=== PATIENT | male | born 1970 | race Caucasian/White ===

== ENCOUNTER 2021-04-24 09:36 | Emergency (ER) | payer OTHER, SELFPAY ==
[2021-04-24 12:01] VITALS: BP 146/89; PULSE 59; RESP 22; TEMP 37.3; O2SAT 99; BMI 31.3
--- NOTE | 2021-04-24 12:01 | XR_ITS ---
PROCEDURE INFORMATION: Exam: XR Chest Exam date and time: 04/24/2021 12:01 PM Age: 50 years old Clinical indication: Patient HX: Cough and congestion. TECHNIQUE: Imaging protocol: XR of the chest. Views: 2 views. COMPARISON: No relevant prior studies available. FINDINGS: Lungs: Faint reticular opacities in the lungs bilaterally. Pleural spaces: Unremarkable. No pleural effusion. No pneumothorax. Heart/Mediastinum: Unremarkable. No cardiomegaly. Bones/joints: Unremarkable. IMPRESSION: Faint reticular opacities in the lungs bilaterally may reflect pneumonia.
--- NOTE | 2021-04-24 12:24 | HMH.EDUTC ---
[facility] Disposition Clinical Impression: Pneumonia Qualifiers: Pneumonia type: due to unspecified organism Laterality: bilateral Lung location: lower lobe of lung Qualified Code(s): J18.9 - Pneumonia, unspecified organism Disposition: Home, Self-Care Condition on Discharge: Good Instructions: Pneumonia-Adult, DI for COVID-19 (Suspected or Confirmed ), Preventing the Spread of Coronavirus Discharge Instructions Additional Instructions: Drink plenty of fluids. Make sure you are resting plenty. Your body needs all its energy to fight off pneumonia for the next several days. Take tylenol or ibuprofen for pain or fever. Take the medications as directed. Follow up with your regular doctor. GO TO THE ER FOR ANY WORSENING SYMPTOMS Throw your tooth brush away and get a new one. Quarantine until you know the results of your covid-19 test. If it is positive, the health department should call you and give you further instructions about your length of Quarantine and other things. Notify your school or workplace of your results and follow their instructions regarding return to work/school. Don't start the oral steroids (medrol dose pack) until tomorrow, since you had the shot here today. Start the antibiotics (levaquin) today. The cough medication (promethazine dm) will make you drowsy, so don't drive or operate heavy machinery after taking it. If this is not covid-19, please follow up with your primary care physician in a few days to make sure you are getting better. Usually you should have another chest x-ray in a couple of weeks to make sure the pneumonia is completely gone. If this is covid-19, none of that applies, but make sure you follow up for any worsening of your breathing regardless. Prescriptions: Albuterol Sulfate [Albuterol Sulfate Hfa] 2 puffs IH Q6HP PRN 30 Days #1 each PRN Reason: Shortness Of Breath Transmission Status: Received by [facility] Promethazine/Dextromethorphan [Promethazine-Dm Syrup] 5 ml PO Q6HP PRN #240 ml PRN Reason: Cough Transmission Status: Received by [facility] levoFLOXacin [Levaquin 500mg tab] 500 mg PO DAILY 7 Days #7 tab Transmission Status: Received by [facility] methylPREDNISolone [Medrol] 4 mg PO DIRECTED 6 Days #21 packet Transmission Status: Received by [facility] Referrals: Govind Euceda MD [Primary Care Provider] - Forms: Work/School Release Time of Disposition: 12:39 Medical Decision Making - Medical Records Medical records reviewed: No: I reviewed the patient's medical records. - Kalyan Inquiry Pt receiving controlled substance: No Vital Signs: 04/24/21 12:01 04/24/21 12:53 Temperature 99.2 F 99.2 F Temperature Source Oral Pulse Rate 59 L Pulse Rate [Left] 59 L Respiratory Rate 22 22 Blood Pressure 146/89 H Blood Pressure [Right Arm] 146/89 H Blood Pressure Mean [Right Arm] 108 02 Sat by Pulse Oximetry 99 - Lab Data Lab results reviewed: Yes: I reviewed the patient's lab results. Lab Results 04/24/21 12:35: Chlamy pneumoniae PCR Not detected, Adenovirus (PCR) Not detected, B. pertussis DNA (PCR) Not detected, Coronavirus OC43 (PCR) Not detected, Coronavirus HKU1 (PCR) Not detected, Coronavirus 229E (PCR) Not detected, SARS-CoV-2 (PCR) Detected A, Coronavirus NL63 (PCR) Not detected, Human Metapneumovir PCR Not detected, Influenza A (H1) PCR Not detected, Influ A (H1N1/09) PCR Not detected, Influenza A (H3) PCR Not detected, Influenza Type A (PCR) Not detected, Influenza Type B (PCR) Not detected, M. pneumoniae (PCR) Not detected, Parainfluenza 1 (PCR) Not detected, Parainfluenza 2 (PCR) Not detected, Parainfluenza 3 (PCR) Not detected, Parainfluenza 4 (PCR) Not detected, RSV (PCR) Not detected, Entero/Rhino (PCR) Not detected Orders (Tests/Meds): ED MEDICATIONS Discontinued Medications Generic Name Dose Route Start Last Admin Trade Name Freq PRN Reason Stop Dose Admi
[2021-04-24 12:46] LABS: Adenovirus,PCR Not Detected (NotDetected); Bordetella Pertussis Not Detected (NotDetected); Chlamydophila Pneumoniae, PCR Not Detected (NotDetected); Coronavirus 229E Not Detected (NotDetected); Coronavirus NL63 Not Detected (NotDetected); Coronavirus OC43 Not Detected (NotDetected); Coronovirus HKU1,PCR Not Detected (NotDetected); Human Metapneumovirus Not Detected (NotDetected); Influenza A, PCR Not Detected (NotDetected); Influenza AH1, 2009 Not Detected (NotDetected); Influenza AH1, PCR Not Detected (NotDetected); Influenza AH3,PCR Not Detected (NotDetected); Influenza B, PCR Not Detected (NotDetected); Mycoplasma Pneumoniae, PCR Not Detected (NotDetected); Parainfluenza 1, PCR Not Detected (NotDetected); Parainfluenza 2, PCR Not Detected (NotDetected); Parainfluenza 3, PCR Not Detected (NotDetected); Parainfluenza 4, PCR Not Detected (NotDetected); Respiratory Syncytial Virus Not Detected (NotDetected); Rhinovirus/Enterovirus Not Detected (NotDetected)
[2021-04-24 12:53] VITALS: BP 146/89; PULSE 59; RESP 22; TEMP 37.3
[2021-04-24 14:02] LABS: Coronavirus 19, PCR Detected (NotDetected)
== END 2021-04-24 12:54 | disposition home or self-care (01) ==
PROVIDERS: Emergency Provider Nurse Practitioner Family; PCP Internal Medicine Adolescent Medicine
DX: J18.9 Pneumonia, unspecified organism (principal); U07.1 COVID-19
CPT/HCPCS: 71046; 87581; 87632; 87798; 96372; 99202; C9803; G0463; U0003; U0005

== ENCOUNTER → 2022-08-23 06:50 | Outpatient (CLI) | payer BC, SELFPAY ==
--- NOTE | 2022-08-23 07:14 | CT_ITS ---
FINAL REPORT TECHNIQUE: Thin section axial CT images of the orbits were obtained. Coronal reformatted images were also obtained. This study was performed with techniques to keep radiation doses as low as reasonably achievable (ALARA). Individualized dose reduction techniques using automated exposure control or adjustment of mA and/or kV according to the patient''s size were employed. CLINICAL HISTORY: PAPILLEDEMA, right eye blurry vision, black spot. COMPARISON: none FINDINGS: No fracture. There are postoperative changes in the right maxilla. There is mucosal thickening in the floor of the left maxilla with chronic calcifications. The globes are intact. Optic nerves are normal. Extraocular muscles appear normal IMPRESSION: No acute findings. Reviewed, Interpreted and Dictated by Iraj Dallas MD Transcribed by Angela Sheldon Authenticated and [facility]
--- NOTE | 2022-08-23 07:14 | CT_ITS ---
FINAL REPORT TECHNIQUE: Axial images through the brain were performed after the administration of IV contrast. Coronal reconstructions were submitted. This study was performed with techniques to keep radiation doses as low as reasonably achievable (ALARA). Individualized dose reduction techniques using automated exposure control or adjustment of mA and/or kV according to the patient's size were employed. CLINICAL HISTORY: PAPILLEDEMA COMPARISON: none FINDINGS: There is no evidence of intracranial hemorrhage or mass. The ventricular size is within normal limits. There is no evidence of shift of the midline structures. No abnormal extra axial fluid collection is identified. No skull abnormality is seen on the bone window images. No abnormal contrast enhancement. IMPRESSION: No acute intracranial process. Reviewed, Interpreted and Dictated by Praveen Donaldson III, MD Transcribed by Angela Sheldon Authenticated and [facility]
== END ==
LOC: RAD 06:55
PROVIDERS: PCP Internal Medicine Adolescent Medicine; Visit Provider Internal Medicine Adolescent Medicine
DX: H47.10 Unspecified papilledema (principal)
CPT/HCPCS: 70460; 70480; Q9966

== ENCOUNTER → 2022-08-31 13:14 | Outpatient (CLI) | payer BC, SELFPAY ==
--- NOTE | 2022-08-31 | XR_ITS ---
FINAL REPORT CLINICAL HISTORY: METAL IN EYE R/O METAL FOR MRI COMPARISON: None FINDINGS: ORBITS Look up and look down views were obtained. No fracture is identified. The sinuses are clear. No radiopaque foreign body is identified. There are postoperative changes in the anterior face. IMPRESSION: No evidence of radiopaque foreign body. Reviewed, Interpreted and Dictated by Praveen Donaldson III, MD Transcribed by Angela Sheldon Authenticated and . [facility]
--- NOTE | 2022-08-31 13:49 | MR_ITS ---
FINAL REPORT CLINICAL HISTORY: UNSPECIFIED PAPILLEDEMA RIGHT EYE HAZEY COMPARISON: none FINDINGS: Multiplanar MR imaging of the brain was performed without contrast. There is no evidence of intracranial hemorrhage or mass. The ventricular size is normal. There is no evidence of shift of the midline structures. No area of restricted diffusion is identified. The posterior fossa and brainstem have an unremarkable appearance. Normal major vessel vascular flow voids are seen. IMPRESSION: Unremarkable brain with no focal abnormality identified. Reviewed, Interpreted and Dictated by Praveen Donaldson III, MD Transcribed by Angela Sheldon Authenticated and . [facility]
== END ==
LOC: RAD 13:14
PROVIDERS: PCP Internal Medicine Adolescent Medicine; Visit Provider Internal Medicine Adolescent Medicine
DX: H47.10 Unspecified papilledema (principal); H05.50 Retained (old) foreign body following penetrating wound of unspecified orbit
CPT/HCPCS: 70200; 70551

== ENCOUNTER → 2022-09-11 14:45 | Outpatient (CLI) | payer BC, SELFPAY ==
--- NOTE | 2022-09-11 15:13 | MR_ITS ---
FINAL REPORT CLINICAL HISTORY: PAPILLEDEMA. BLURRED VISION OUT OF RIGHT EYE COMPARISON: August 31, 2022 FINDINGS: Globes: Intact Optic nerve sheaths: Normal Orbital masses: None Extraocular muscles: Symmetric Optic chiasm: Unremarkable Pituitary and pituitary stalk: Unremarkable. Visualized brain: Unremarkable. Other: Right frontal calvarial lesion measuring 9 mm with associated enhancement is nonspecific. IMPRESSION: Unremarkable appearance of the orbits. Pituitary unremarkable. Nonspecific right frontal calvarial lesion with enhancement favors a hemangioma. Recommend CT or MRI follow-up in 6 months. Reviewed, Interpreted and Dictated by Magdalena Bowen MD Transcribed by Bassem Arana Authenticated and [facility]
== END ==
LOC: RAD 14:46
PROVIDERS: PCP Internal Medicine Adolescent Medicine; Visit Provider Internal Medicine Adolescent Medicine
DX: H47.10 Unspecified papilledema (principal); H46.9 Unspecified optic neuritis; G44.52 New daily persistent headache (NDPH); M79.2 Neuralgia and neuritis, unspecified
CPT/HCPCS: 70543; A9576

== ENCOUNTER → 2022-10-02 14:12 | Outpatient (CLI) | payer BC, SELFPAY ==
--- NOTE | 2022-10-02 14:25 | CT_ITS ---
FINAL REPORT TECHNIQUE: Thin-section axial CT images were performed through the orbits. Coronal and sagittal reformatted images were submitted. This study was performed with techniques to keep radiation doses as low as reasonably achievable, (ALARA). Individualized dose reduction techniques using automated exposure control or adjustment of mA and/or kV according to the patient's size were employed CLINICAL HISTORY: RETINAL ISCHEMIA COMPARISON: 08/23/2022 FINDINGS: No fracture is identified. The orbital floors are intact. Globes are intact. Extraocular muscles are unremarkable. There are postoperative changes to the anterior right maxilla. There is an 8 mm lytic lesion in the right frontal skull which is unchanged from prior exam, favor hemangioma. IMPRESSION: Stable 8 mm lytic lesion in the right frontal skull, favor hemangioma. Reviewed, Interpreted and Dictated by Praveen Donaldson III, MD Transcribed by Hiral Felipe Authenticated and [facility]
== END ==
PROVIDERS: PCP Internal Medicine Adolescent Medicine; Visit Provider Nurse Practitioner Family
DX: H35.82 Retinal ischemia (principal)
CPT/HCPCS: 70480

== ENCOUNTER → 2022-10-04 08:01 | Outpatient (CLI) | payer BC, SELFPAY ==
--- NOTE | 2022-10-04 08:05 | FL_ITS ---
FINAL REPORT CLINICAL HISTORY: r/o MS, acute blindness in right eye, ft 0:10, opening pressure 19 FINDINGS: LUMBAR PUNCTURE AND FLUOROSCOPY HISTORY: Headaches ATTENDING PHYSICIAN: Dr. Donaldson PHYSICIAN ARTISAN PLASTERER: Yosvany Kern PA-C PROCEDURE: After informed consent was obtained and timeout procedure performed, the patient was placed in the prone position in the fluoroscopic suite. The L4-L5 level of the lumbar spine was localized under fluoroscopic guidance and marked on the skin appropriately. The patient was then prepped and draped in the usual sterile fashion and the skin was anesthetized with 1% Lidocaine. A lumbar puncture was then performed under direct fluoroscopic guidance at the L3/4 level using a 20-gauge 3 1/2'' needle. The patient was subsequently rolled into the left lateral decubitus position and opening pressure was measured at 19 cm of water. Approximately 12 ml of clear cerebrospinal fluid was removed and sent to the laboratory for studies. The patient tolerated the procedure well and there were no immediate complications. IMPRESSION: Technically successful lumbar puncture as above. Films reviewed , interpreted and dictated by Dr. Donaldson Transcribed by Yosvany Kern PA-C. Reviewed, Interpreted and Dictated by Praveen Donaldson III, MD Transcribed by AGAPITO Phillips Authenticated and [facility]
[2022-10-04 14:49] LABS: Appearance,CSF Clear (Clear); Red Blood Cell,CSF 0 cells/uL (0); Volume,CSF 13 mL; White Blood Cell,CSF 3 cells/uL (0-5)
[2022-10-04 14:51] LABS: Mononuclear WBCs,CSF 3 %; Polynuclear WBCs,CSF 0 %
== END | disposition home or self-care (01) ==
PROVIDERS: PCP Internal Medicine Adolescent Medicine; Visit Provider Nurse Practitioner Family
DX: H47.10 Unspecified papilledema (principal); H46.9 Unspecified optic neuritis; H35.82 Retinal ischemia
CPT/HCPCS: 62270; 62328; 83916; 89051

== ENCOUNTER 2022-10-05 12:45 | Emergency (ER) | payer BC, SELFPAY ==
[2022-10-05 12:59] VITALS: BP 128/86; PULSE 50; RESP 20; TEMP 36.6; O2SAT 97; BMI 31.0
[2022-10-05 13:00] VITALS: BP 118/80; PULSE 51; O2SAT 98
--- NOTE | 2022-10-05 13:09 | HMH.EDGENADL ---
Discharge Plan Disposition Patient Disposition: Home, Self-Care Prescriptions Prescriptions: No Action No Known Home Medications Referrals Follow up/Referrals: Govind Euceda MD [Primary Care Provider] - See instructions Activity Restrictions/Add. Instructions Additional Instructions/Restrictions: Return in 24 to 48 hours for an epidural blood patch if your symptoms have not resolved. Clinical Impressions Clinical Impression: Post-dural puncture headache Discharge ED Provider: Amy Loo General Adult HPI General Chief complaint: Headache Stated complaint: headache, spinal tap yesterday Time Seen by Provider: 10/05/22 12:54 History of Present Illness HPI narrative: Patient is a 51-year-old male presenting with a headache following a lumbar puncture yesterday. States that he lost vision in his right eye in August of this year and has been being worked up by Dr. Wharton and had a lumbar puncture that was scheduled outpatient performed by radiology done yesterday. He had no headache no meningismus no fevers no other symptoms prior to this lumbar puncture but following the lumbar puncture he has had a positional headache that has been significantly worsened with position specifically sitting up improves with lying flat. Related Data Home Medications Medication Instructions Recorded Confirmed No Known Home Medications 10/05/22 10/05/22 Allergies Allergy/AdvReac Type Severity Reaction Status Date / Time Morphine Allergy Mild I-RASH Uncoded 03/27/17 14:16 PCN (penicillin) Allergy Mild I-RASH Uncoded 03/27/17 14:16 PFSH [facility] Disclaimer: The information contained in this section may have been updated after the patient was seen, as this information can be updated by other users. Social History Smoking Status: Never smoker alcohol intake: never current occupational status: other Travel in the last 8 weeks: None ROS Obtained: Yes All systems reviewed & no additional complaints except as documented Physical Exam General General appearance: alert Respiratory Respiratory exam: Present normal lung sounds bilaterally Cardiovascular Cardiovascular exam: Present regular rate Neurological Exam Neurological exam: Present alert, oriented X3 and CN II-XII intact Medical Decision Making Kalyan Inquiry Pt receiving controlled substance: No Vital Signs: 10/05/22 12:59 10/05/22 13:00 10/05/22 13:30 Temperature 97.8 F Temperature Source Oral Pulse Rate 51 L 50 L Pulse Rate [Left Radial] 50 L Respiratory Rate 20 Blood Pressure 118/80 120/80 Blood Pressure [Right Arm] 128/86 Blood Pressure Mean 92 90 Blood Pressure Mean [Right Arm] 100 02 Sat by Pulse Oximetry 97 98 94 L Oxygen Delivery Method Room Air Room Air Room Air 10/05/22 14:03 Temperature Temperature Source Pulse Rate 47 L Pulse Rate [Left Radial] Respiratory Rate Blood Pressure 136/82 Blood Pressure [Right Arm] Blood Pressure Mean 100 Blood Pressure Mean [Right Arm] 02 Sat by Pulse Oximetry 96 Oxygen Delivery Method Lab Data Lab results reviewed: Yes I reviewed the patient's lab results. Lab Results 10/05/22 14:07: WBC 4.6 L, RBC 5.57, Hgb 16.2, Hct 50.5, MCV 90.8, MCH 29.0, MCHC 32.0, RDW 13.4, Plt Count 219, MPV 7.6, Neut % (Auto) 60.9, Lymph % (Auto) 30.1, [place] % (Auto) 6.3, Eos % (Auto) 2.0, Baso % (Auto) 0.6, Neut # (Auto) 2.8, Lymph # (Auto) 1.4, [place] # (Auto) 0.3, Eos # (Auto) 0.1, Baso # (Auto) 0.0, Sodium 138, Potassium 4.1, Chloride 100, Carbon Dioxide 28, Anion Gap 14.1, BUN 19, Creatinine 1.00, Estimated Creat Clear 116, Estimated GFR 78, Est GFR ( Amer) 95, Glucose 99, Calcium 8.9, Total Bilirubin 0.4, AST 25, ALT 30, Alkaline Phosphatase 61, Total Protein 7.3, Albumin 4.2, Globulin 3.1, Albumin/Globulin Ratio 1.4 10/05/22 14:07 10/05/22 14:07 Orders (Tests/Meds): ED MEDICATIONS Discontinued Medications Generic Name Dose
[2022-10-05 13:30] VITALS: BP 120/80; PULSE 50; O2SAT 94
--- NOTE | 2022-10-05 13:51 | CT_ITS ---
FINAL REPORT TECHNIQUE: Thin section axial CT with IV contrast supplemented with multiplanar reconstruction under CT angiogram protocol. This study was performed with techniques to keep radiation doses as low as reasonably achievable (ALARA). Individualized dose reduction techniques using automated exposure control or adjustment of mA and/or kV according to the patient''s size were employed. NASCET criteria was utilized during interpretation. CLINICAL HISTORY: right eye vision loss (subacute, may) COMPARISON: None FINDINGS: Aortic arch: Arch shows no significant narrowing. Great vessel origins are widely patent. Right carotid: No significant stenosis is seen of the cervical common or internal carotid artery. Left carotid: No significant stenosis is seen of the cervical common or internal carotid artery. Vertebral: Left vertebral artery is dominant. No significant stenosis is present. IMPRESSION: No evidence of occlusion or significant stenosis. Reviewed, Interpreted and Dictated by Praveen Donaldson III, MD Transcribed by Angela Sheldon Authenticated and [facility]
--- NOTE | 2022-10-05 13:51 | CT_ITS ---
FINAL REPORT TECHNIQUE: Thin section axial CT with IV contrast supplemented with multiplanar reconstruction under CT angiogram protocol. 3-D reconstructions were performed. This study was performed with techniques to keep radiation doses as low as reasonably achievable (ALARA). Individualized dose reduction techniques using automated exposure control or adjustment of mA and/or kV according to the patient''s size were employed. CLINICAL HISTORY: .right eye vision loss (subacute, august) COMPARISON: None FINDINGS: The distal vertebral, basilar and distal internal carotid arteries have an unremarkable appearance. No aneurysm is seen. Major intracranial vessels are patent without significant stenosis. IMPRESSION: No evidence of occlusion or significant stenosis. Reviewed, Interpreted and Dictated by Praveen Donaldson III, MD Transcribed by Angela Sheldon Authenticated and [facility]
[2022-10-05 14:03] VITALS: BP 136/82; PULSE 47; O2SAT 96
[2022-10-05 14:12] LABS: Basophils % 0.6 % (0.1-2.0); Eosinophils # 0.1 K/mm3 (0.0-0.4); Hematocrit 50.5 % (42.0-52.0); Hemoglobin 16.2 g/dL (14.1-18.0); Lymphocytes # 1.4 K/mm3 (0.7-4.5); Lymphocytes % 30.1 % (10-50); Mean Corpuscular Volume 90.8 fl (80-94); Mean Platelet Volume 7.6 fl (7.4-10.4); Monocytes # 0.3 K/mm3 (0.1-1.0); Monocytes % 6.3 % (1.7-9.3); Neutrophils # 2.8 K/mm3 (1.8-7.8); Neutrophils % 60.9 % (37.0-80.0); Platelet Count 219 K/mm3 (142-424); Red Blood Count 5.57 M/mm3 (4.60-6.20); Red Cell Distribution Width 13.4 % (11.5-17.5); White Blood Count 4.6 K/mm3 (4.8-10.8)
[2022-10-05 14:49] LABS: Chloride 100 mmol/L (98-107); Sodium 138 mmol/L (136-145)
[2022-10-05 14:52] LABS: Alanine Aminotransferase 30 U/L (12-78); Albumin Level 4.2 g/dl (3.5-5.0); Albumin/Globulin Ratio 1.4 (1.1-1.8); Alkaline Phosphatase 61 U/L (38-126); Anion Gap 14.1 mEq/L (5-15); Aspartate Amino Transferase 25 U/L (17-59); Bilirubin,Total 0.4 mg/dl (0.2-1.3); Blood Urea Nitrogen 19 mg/dl (9-20); Carbon Dioxide 28 mmol/L (22.0-30.0); Creatinine Clearance Estimated 116 mL/min (50-200); Estimated Glomerular Filt Rate 78 ml/min (>60); GFR (African American) 95 ML/MIN (>60); Globulin 3.1 g/dL (1.3-3.2); Potassium 4.1 mmoL/L (3.5-5.1); Total Protein,Serum 7.3 g/dl (6.3-8.2)
[2022-10-05 14:53] LABS: Calcium 8.9 mg/dl (8.4-10.2); Glucose 99 mg/dl (74-100)
--- NOTE | 2022-10-05 16:32 | PC.NURSE ---
PT IS SLEEPING IN BED, AT BS
[2022-10-05 16:40] VITALS: BP 130/89; PULSE 50; RESP 20; TEMP 36.6; O2SAT 97
== END 2022-10-05 16:41 | disposition home or self-care (01) ==
PROVIDERS: Emergency Provider Student in an Organized Health Care Education/Training Program; PCP Internal Medicine Adolescent Medicine
DX: G97.1 Other reaction to spinal and lumbar puncture (principal); R51.9 Headache, unspecified
CPT/HCPCS: 70496; 70498; 80053; 85025; 96361; 96374; 96375; 99285; J3475; Q9967

== ENCOUNTER 2022-10-07 11:49 | Emergency (ER) | payer BC, SELFPAY ==
[2022-10-07 11:57] VITALS: BP 134/90; PULSE 48; RESP 17; TEMP 36.6; O2SAT 97; BMI 29.5
--- NOTE | 2022-10-07 12:00 | PC.NURSE ---
DR LO AT BEDSIDE
--- NOTE | 2022-10-07 12:03 | HMH.EDHA ---
Discharge Plan Disposition Patient Disposition: Home, Self-Care Prescriptions Prescriptions: No Action No Known Home Medications Referrals Follow up/Referrals: Govind Euceda MD [Primary Care Provider] - See instructions Activity Restrictions/Add. Instructions Additional Instructions/Restrictions: Please return to the emergency department immediately if you feel worse in any way. Follow-up with your primary care doctor as needed. Keep all follow-up appointments as scheduled. Clinical Impressions Clinical Impression: Post-dural puncture headache Instructions Patient Instructions: DI for Post-Spinal Puncture Headache Discharge ED Provider: Gayle Bee Headache HPI General Chief Complaint: Headache Stated Complaint: headache, had spinal tap Sunday Time Seen by Provider: 10/07/22 11:57 Mode of Arrival: Family Vehicle Source of Information: Patient and Spouse History of Present Illness HPI Narrative: The patient presents to the emergency department complaining of a headache since a lumbar puncture was performed on Sunday. The lumbar puncture was performed for right-sided vision loss. It was done by radiology under fluoroscopy. The patient denies any other symptoms. He has no focal neurodeficits except for the visual loss which occurred prior to the procedure. He states that he had a partial discectomy several years ago. The headache is worsened when standing. He does have some photophobia. He denies any nausea or vomiting. He was seen in this emergency department the day following the procedure and was told that it was too early for a blood patch. MD Complaint: headache Related Data Home Medications Medication Instructions Recorded Confirmed No Known Home Medications 10/05/22 10/05/22 Allergies Allergy/AdvReac Type Severity Reaction Status Date / Time Morphine Allergy Mild I-RASH Uncoded 03/27/17 14:16 PCN (penicillin) Allergy Mild I-RASH Uncoded 03/27/17 14:16 [facility] History Hepatitis A Screen Attestation statement:: This patient has been screened for Hepatitis A risk factors. Social History Smoking Status: Never smoker Alcohol Intake: never Occupational Status: other [employer] Disclaimer: The information contained in this section may have been updated after the patient was seen, as this information can be updated by other users. Social History (Updated 10/05/22 @ 16:33 by Amy Loo MD) Smoking Status: Never smoker alcohol intake: never current occupational status: other Travel in the last 8 weeks: None ROS Obtained: Yes All systems reviewed & no additional complaints except as documented Physical Exam General General appearance: alert and in no apparent distress Head Head exam: atraumatic Eye Eye exam: Present normal appearance and EOMI ENT ENT exam: Present normal exam Neck Neck exam: Present normal inspection and full ROM; Absent tenderness or meningismus Chest Chest inspection: Present normal inspection and symmetric chest wall rise; Absent tenderness Respiratory Respiratory exam: Present normal lung sounds bilaterally; Absent respiratory distress or accessory muscle use Cardiovascular Cardiovascular exam: Present regular rate, normal rhythm and normal heart sounds Abdominal Exam Abdominal exam: Present soft and normal bowel sounds; Absent distention, tenderness, heel tap sign, Haque's sign, Rovsing's sign, tenderness at McBurney's Point or mass Extremities Exam Extremities exam: Present normal inspection and full ROM Back Exam Back exam: Present normal inspection; Absent CVA tenderness (R) or CVA tenderness (L) Neurological Exam Neurological exam: Present alert, oriented X3, normal gait and reflexes normal; Absent motor sensory deficit Psychiatric Psychiatric exam: Present normal affect and normal mood Skin Skin exam: Present warm, dry, intact and normal color Medical Decision Making Kalyan Inquiry Pt receiving controlled substanc
--- NOTE | 2022-10-07 12:03 | PC.NURSE ---
KALEB PATRICK speaking with anesthesia bath design sales consultant.
--- NOTE | 2022-10-07 12:10 | PC.NURSE ---
CONSENT SIGNED FOR BLOOD PATCH AT THIS TIME
--- NOTE | 2022-10-07 12:19 | PC.NURSE ---
luana sexton at speaking with pt.
--- NOTE | 2022-10-07 12:20 | PC.NURSE ---
ANESTHESIA AT BEDSIDE TO UPDATE PT
--- NOTE | 2022-10-07 12:38 | PC.NURSE ---
1227 TIME OUT 1228 SITE PREPPED 1229 LOCAL GIVEN 1231 PROCEDURE STARTED 1232 IV TO LEFT AC # 20, TOLERATED WELL 1233 10MLS BLOOD GIVEN TO ANESTHESIA 1235 ADDITIONAL 10MLS BLOOD GIVEN TO ANESTHESIA, TOLERATED WELL, REPORTS HEADACHE RESOLVED 1237 PROCEDURE COMPLETE, PT TOLERATED WELL B/P 116/64, HR 46, RESP 17
--- NOTE | 2022-10-07 12:43 | HMH.PROCNOTE ---
[facility] Procedure Note Date: 10/07/22 Time: 12:43 Procedure Note:: Called to ER due to post dural puncture headache. Blood patch performed with sterile procedure. 20 cc autologous blood injected. Headache resolved immediately.
--- NOTE | 2022-10-07 12:48 | PC.NURSE ---
ROUNDED ON PT, REPORTS NO HEADACHE AT THIS TIME. AT BEDSIDE
[2022-10-07 12:55] VITALS: BP 116/64; PULSE 50; RESP 17; TEMP 36.6; O2SAT 99
== END 2022-10-07 12:55 | disposition home or self-care (01) ==
PROVIDERS: Emergency Provider Emergency Medicine; PCP Internal Medicine Adolescent Medicine
DX: G97.1 Other reaction to spinal and lumbar puncture (principal); R51.0 Headache with orthostatic component, not elsewhere classified
CPT/HCPCS: 62270; 99283; 99284

== ENCOUNTER 2023-05-08 13:42 | Outpatient (CLI) | payer BC, SELFPAY ==
--- NOTE | 2023-05-08 13:48 | XR_ITS ---
FINAL REPORT CLINICAL HISTORY: right tib fib fx..fell down stairs FINDINGS: Two views of the right tibia-fibula. Oblique fracture of the distal fibula. Mild displacement. Tiny age-indeterminate avulsion of the tip of the medial malleolus. Joints are intact. IMPRESSION: Oblique fracture of the distal fibula. Reviewed, Interpreted and Dictated by Magdalena Bowen MD Transcribed by Bassem Arana Authenticated and [facility]
== END 2023-05-08 23:59 ==
LOC: RAD 13:43
PROVIDERS: PCP Internal Medicine Adolescent Medicine; Visit Provider Orthopaedic Surgery
DX: S82.431A Displaced oblique fracture of shaft of right fibula, initial encounter for closed fracture (principal); S82.61XA Displaced fracture of lateral malleolus of right fibula, initial encounter for closed fracture
CPT/HCPCS: 73590

== ENCOUNTER 2023-05-08 15:33 | Outpatient (RCR) | payer BC, SELFPAY | END 2023-05-08 16:30 | disposition home or self-care (01) | LOC: PT 15:33 | PROVIDERS: Visit Provider Orthopaedic Surgery | DX: S82.61XA Displaced fracture of lateral malleolus of right fibula, initial encounter for closed fracture (principal) | CPT/HCPCS: 97760 ==

== ENCOUNTER 2023-05-17 08:34 | Outpatient (CLI) | payer BC, SELFPAY ==
--- NOTE | 2023-05-17 08:48 | XR_ITS ---
FINAL REPORT CLINICAL HISTORY: right ankle fx FINDINGS: RIGHT ANKLE Three views were obtained. There is an oblique fracture of the distal fibular metaphysis. There is mild posterior displacement of the distal fracture fragment. Posterior calcaneal spurs are identified. IMPRESSION: Fracture as above. Reviewed, Interpreted and Dictated by Praveen Donaldson III, MD Transcribed by Natividad Hunter Authenticated and [facility]
--- NOTE | 2023-05-17 09:52 | ECG_ITS ---
APPROVED REPORT Exam: Resting ECG HR:49 bpm ECG Measurements Heart Rate 49 AXES SD 80 P 227 QRSd 108 QRS 92 QT 409 T 52 QTc 378 Conclusion Sinus Bradycardia RIGHT AXIS DEVIATION [QRS AXIS > 90] Late R wave progression ABNORMAL RHYTHM ECG UNCONFIRMED REPORT Electronically signed by : Govind Euceda MD 05/19/2023 06:37:07
--- NOTE | 2023-05-17 10:04 | XR_ITS ---
FINAL REPORT CLINICAL HISTORY: PRe Op, cough COMPARISON: 04/24/2021 FINDINGS: 2 views of the chest were obtained . The heart is normal in size. The mediastinum is within normal limits. The lungs are clear. There is no pneumothorax. Osseous structures are unremarkable. IMPRESSION: No acute cardiopulmonary process. Reviewed, Interpreted and Dictated by Praveen Donaldson III, MD Transcribed by Hiral Felipe Authenticated and . [facility]
[2023-05-17 10:25] LABS: Basophils % 0.3 % (0.1-2.0); Eosinophils # 0.1 K/mm3 (0.0-0.4); Eosinophils % 1.6 % (0.1-12.0); Hemoglobin 15.9 g/dL (14.1-18.0); Mean Corpuscular HGB Conc 33.9 g/dL (31.8-35.4); Mean Corpuscular Hemoglobin 29.5 pg (27.0-31.2); Mean Corpuscular Volume 87.2 fl (80-94); Mean Platelet Volume 6.4 fl (7.4-10.4); Monocytes # 0.4 K/mm3 (0.1-1.0); Monocytes % 6.9 % (1.7-9.3); Neutrophils # 2.6 K/mm3 (1.8-7.8); Neutrophils % 52.1 % (37.0-80.0); Platelet Count 246 K/mm3 (142-424); Red Blood Count 5.39 M/mm3 (4.60-6.20); Red Cell Distribution Width 13.5 % (11.5-17.5)
[2023-05-17 10:57] LABS: Alanine Aminotransferase 39 U/L (12-78); Albumin Level 4.3 g/dl (3.5-5.0); Albumin/Globulin Ratio 1.7 (1.1-1.8); Alkaline Phosphatase 63 U/L (38-126); Anion Gap 8.3 mEq/L (5-15); Aspartate Amino Transferase 29 U/L (17-59); Bilirubin,Total 0.7 mg/dl (0.2-1.3); Blood Urea Nitrogen 14 mg/dl (9-20); Calcium 9.4 mg/dl (8.4-10.2); Carbon Dioxide 31 mmol/L (22.0-30.0); Chloride 107 mmol/L (98-107); Estimated Glomerular Filt Rate 78 ml/min (>60); GFR (African American) 95 ML/MIN (>60); Globulin 2.6 g/dL (1.3-3.2); Glucose 104 mg/dl (74-100); Potassium 4.3 mmoL/L (3.5-5.1); Sodium 142 mmol/L (136-145); Total Protein,Serum 6.9 g/dl (6.3-8.2)
== END 2023-05-17 23:59 ==
PROVIDERS: PCP Internal Medicine Adolescent Medicine; Visit Provider Orthopaedic Surgery
DX: S82.61XA Displaced fracture of lateral malleolus of right fibula, initial encounter for closed fracture (principal); Z01.818 Encounter for other preprocedural examination
CPT/HCPCS: 36415; 71046; 73610; 80053; 85025; 93005

== ENCOUNTER 2023-05-21 11:51 | Day surgery (SDC) | payer BC, SELFPAY ==
[2023-05-18 10:45] VITALS: BMI 31.3
[2023-05-21] VITALS (9 sets, daily range): BP systolic 106–129; BP diastolic 60–91; PULSE 64–72; RESP 14–18; TEMP 35.8–43; O2SAT 90–99
--- NOTE | 2023-05-21 12:01 | ECG_ITS ---
APPROVED REPORT Exam: Resting ECG HR:60 bpm ECG Measurements Heart Rate 60 AXES NH 195 P 39 QRSd 113 QRS 15 QT 417 T 20 QTc 417 Conclusion SINUS RHYTHM MODERATE INTRAVENTRICULAR CONDUCTION DELAY [110+ ms QRS DURATION] BORDERLINE ECG UNCONFIRMED REPORT Electronically signed by : Govind Euceda MD 05/21/2023 17:57:15
[2023-05-21] MEDS: LACTATED RINGERS 1000ML 1,000 ML 25 ML IV (12:05)
--- NOTE | 2023-05-21 12:27 | EXP.ANES.CKL ---
[facility] Disclaimer: The information contained in this section may have been updated after the patient was seen, as this information can be updated by other users. Medical History No significant past medical history Surgical History History of back surgery History of facial surgery History of foot surgery Family History Other Family history of cancer Family history of myocardial infarction Social History Smoking Status: Never smoker alcohol intake: never substance use type: denies use current occupational status: other Travel in the last 8 weeks: None [facility] Anesthesia Checklist Patient Identification Patient Identification: Arm Band and Verbal (Name & ) Structural Data Admitted From: Home Planned Operative Procedure/s: ORIF right ankle Consent for Planned Operative Procedure(s) Verified: Yes NPO Status Verified Time NPO: 00:00 Additional verifications Anesthesia Reactions: No Hx Blood Transfusions: Yes Blood Transfusion Reaction: No Airway Assessment Mallampati Score:: Class II C-Spine Mobility Assessed: Yes TMJ Mobility Assessed: Yes Dentition: Good Dentition Neurological Assessment Level of Consciousness: Awake Hx Seizures: No Numbness or tingling in extremities: No Anesthesia Plan Anesthesia Risk discussed: Yes Anesthesia Plan: Verified ASA Class: II Anesthesia Type: General w/block
[2023-05-21] MEDS: CLINDAMYCIN PHOSPHATE/D5W 900 MG/50 ML PIGGYBACK 106 MG IV (13:20)
--- NOTE | 2023-05-21 14:26 | XR_ITS ---
FINAL REPORT CLINICAL HISTORY: RIGHT ANKLE IN OR FINDINGS: 2 fluoroscopic spot films were obtained in the OR for right ankle ORIF. 21 seconds of fluoroscopy time was reported. 0.93 mGy dose. IMPRESSION: Right ankle ORIF. 21 seconds of fluoroscopy time. Reviewed, Interpreted and Dictated by Praveen Donaldson III, MD Transcribed by Hiral Felipe Authenticated and [facility]
--- NOTE | 2023-05-21 14:46 | EXP.OP.NOTE ---
Date of procedure: 05/21/23 Pre-op Diagnosis:: Right lateral malleolus fracture with syndesmotic tear Post-op Diagnosis:: Same Procedure performed:: 1 open reduction internal fixation right lateral malleolus fracture 2 syndesmotic repair with tight rope right ankle Surgeon:: José Luis Zavala DO CONSTRUCTION ENGINEERING MANAGER:: Other Anesthesia: GETA and regional Estimated blood loss (mL): 0 Operative findings:: See dictation Operative note:: Patient is identified preoperatively. Right ankle marked with yes my initials. Transported operative suite. Placed upon operating bed. After undergoing a block with anesthesia of the right lower extremity was prepped and draped in normal sterile fashion. Once prepped and draped final operative timeout performed to identify proper patient procedure and extremity. Everyone involved the case agreed. No counter indication beginning. Did receive preoperative antibiotics. Marking pen was used to [place] plan incision over the lateral malleolus of right ankle x-ray was brought into identify the fracture site. Esmarch was used to exsanguinate the extremity and pneumatic tourniquet was inflated to 300 mmHg. Skin knife was used to incise through skin careful dissection was taken down to identify the fracture site. Fracture site was cleaned with a rongeur and the knife to remove soft tissue. Then pulmonary reduction was held with a lobster claw. This was followed with an anterior to posterior lag screw which gave good fixation of the proximal and distal fragments. One third tubular was plate was selected from the [employer] ankle plating system. Was placed onto the bone with cortical screws distally and proximally to the fracture. Additional 1 locking screw was placed most superior hole. And then the ankle was stressed showing gapping and syndesmosis so the tight rope mechanism was utilized. Guidewire was placed through 4 cortexes from fibula to the tibia. Cannulated drill bit was used over drill and the tight rope mechanism was then placed and sequentially tightened. The ends were cut ankle x-rays were taken the AP and lateral views show good reduction and stable fixation. Irrigation wound performed. Skin closed with Vicryl stitches deep nylon stitches on the skin sterile dressing with a posterior splint placed. Patient waken anesthesia taken recovery in stable condition Condition: stable Disposition: PACU Complications:: None apparent
--- NOTE | 2023-05-22 13:51 | P.PNANES_ITS ---
[facility] [place] Anesthesia Record Part II Anesthesia Record Part II Discharge Time: 15:12 Destination: Surgical Day Care (OP Surgery) PACU nurse assessment reviewed?: Yes Patient Condition:: Good Anesthesia Complications:: None Swallowing reflex intact?: Yes Airway Patency: Patent Cyanosis?: No Blood Pressure: 127/64 SaO2: 95 Respiratory Rate: 18 Pulse Rate: 67 Temperature: 97.9 F Mental Status: Alert & Oriented Pain level:: 0 Nausea and/or vomitting:: None Intake, IV Amount: 0 Hydration: Adequate
[2023-05-22 13:52] VITALS: BP 127/64; PULSE 67; RESP 18; TEMP 36.6; O2SAT 95
== END 2023-05-21 15:40 | disposition home or self-care (01) ==
PROVIDERS: PCP Internal Medicine Adolescent Medicine; Visit Provider Orthopaedic Surgery
PROC: (CPT 27792; principal; 2023-05-21 13:30)
DX: S82.61XA Displaced fracture of lateral malleolus of right fibula, initial encounter for closed fracture (principal); X58.XXXA Exposure to other specified factors, initial encounter
CPT/HCPCS: 27792; 27829; 73600; 76000; 93005; 96374; C1713; C1776

== ENCOUNTER 2023-06-07 08:34 | Outpatient (CLI) | payer BC, SELFPAY ==
--- NOTE | 2023-06-07 08:38 | XR_ITS ---
FINAL REPORT CLINICAL HISTORY: Right Ankle Fx follow-up COMPARISON: 05/17/2023 FINDINGS: AP, oblique, and lateral views of the right ankle were obtained. There has been interval ORIF of previously identified distal fibular fracture. The hardware is intact. The fracture fragments are well aligned. There is a tiny calcification distal to the lateral malleolus which is unchanged. There is mild soft tissue edema. There are no immediate complications. IMPRESSION: Postoperative changes without immediate complication. Reviewed, Interpreted and Dictated by Magali Arriola MD Transcribed by Angela Sheldon Authenticated and [facility]
== END 2023-06-07 23:59 ==
LOC: RAD 08:35
PROVIDERS: PCP Internal Medicine Adolescent Medicine; Visit Provider Orthopaedic Surgery
DX: M25.571 Pain in right ankle and joints of right foot (principal); S82.61XA Displaced fracture of lateral malleolus of right fibula, initial encounter for closed fracture
CPT/HCPCS: 73610

== ENCOUNTER 2023-07-05 09:17 | Outpatient (CLI) | payer BC, SELFPAY ==
--- NOTE | 2023-07-05 09:22 | XR_ITS ---
FINAL REPORT CLINICAL HISTORY: Rt ankle fx COMPARISON: 06/07/2023 FINDINGS: RIGHT ANKLE 3 views of the right ankle were obtained. There is no acute fracture or dislocation. There is a orthopedic plate and screws present bridging a healed fracture deformity of the distal fibula. No acute bony abnormality is identified. There is a moderate Carina deformity in the posterior calcaneus. The mortise is intact. Visualized joint spaces are normally aligned. Soft tissues are unremarkable. IMPRESSION: No acute bony abnormality. Orthopedic plate and screws bridge a healed fracture deformity of the distal fibula. Reviewed, Interpreted and Dictated by Iraj Dallas MD Transcribed by Eduarda Marquez Authenticated and [facility]
== END 2023-07-05 23:59 ==
LOC: RAD 09:18
PROVIDERS: PCP Internal Medicine Adolescent Medicine; Visit Provider Orthopaedic Surgery
DX: M25.571 Pain in right ankle and joints of right foot (principal)
CPT/HCPCS: 73610

== ENCOUNTER 2023-07-26 08:17 | Outpatient (CLI) | payer BC, SELFPAY ==
--- NOTE | 2023-07-26 08:22 | XR_ITS ---
FINAL REPORT CLINICAL HISTORY: Right ankle fx COMPARISON: 07/05/2023 FINDINGS: 3 images of the right ankle were obtained. There is a sideplate and screws again noted in the distal fibula bridging a fracture. The hardware appears stable. There is also a lucency through the distal fibula and tibia consistent with a fixation device, also stable. Note is made of a moderate Carina deformity of the calcaneus. The joint spaces are intact. IMPRESSION: Postoperative changes as described, stable since July 04. Note is made of a moderate Carina deformity of the posterior calcaneus. Reviewed, Interpreted and Dictated by Iraj Dallas MD Transcribed by Eduarda Marquez Authenticated and [facility]
== END 2023-07-26 23:59 ==
LOC: RAD 08:17
PROVIDERS: PCP Internal Medicine Adolescent Medicine; Visit Provider Orthopaedic Surgery
DX: M25.571 Pain in right ankle and joints of right foot (principal); S82.61XA Displaced fracture of lateral malleolus of right fibula, initial encounter for closed fracture
CPT/HCPCS: 73610

== ENCOUNTER 2023-08-30 09:39 | Outpatient (CLI) | payer BC, SELFPAY ==
--- NOTE | 2023-08-30 09:42 | XR_ITS ---
FINAL REPORT CLINICAL HISTORY: right ankle fx FINDINGS: RIGHT ANKLE 3 views of the right ankle were obtained. Sideplate and screws are seen in the distal fibula. Carina deformity is noted. Mortise is intact. There is no acute fracture or dislocation. The mortise is intact. Visualized joint spaces are normally aligned. Soft tissues are unremarkable. IMPRESSION: No acute bony abnormality. Reviewed, Interpreted and Dictated by Iraj Dallas MD Transcribed by Hiral Felipe Authenticated and [facility]
== END 2023-08-30 23:59 | disposition home or self-care (01) ==
LOC: RAD 09:40
PROVIDERS: PCP Internal Medicine Adolescent Medicine; Visit Provider Orthopaedic Surgery
DX: M25.571 Pain in right ankle and joints of right foot (principal); S82.891A Other fracture of right lower leg, initial encounter for closed fracture
CPT/HCPCS: 73610